=== PATIENT | male | born 1990 | race Caucasian/White ===

== ENCOUNTER 2019-10-30 10:12 | Day surgery (SDC) | payer OTHER ==
[~2019-10-30 10:12] MED LIST: CEFAZOLIN SODIUM IN 0.9 % NACL 2 GM/100 ML BAG IV ONE
[2019-10-30] MEDS ORDERED: BUPIVACAINE 0.25% PF 30 ML VIAL ONE (10:43)
[2019-10-30] MEDS ORDERED: EPINEPHrine 1 MG/ML AMP ONE (10:43)
--- NOTE | 2019-10-30 10:47 | ANESTHESIA ---
Pre-Anesthesia VS, & Labs - Diagnosis right knee meniscus tear - Procedure right knee meniscus repair Vital Signs: Temp Pulse Resp BP Pulse Ox 36.4 C L 74 18 123/90 H 97 10/30/19 10:15 10/30/19 10:15 10/30/19 10:15 10/30/19 10:15 10/30/19 10:15 Height 5 ft 10 in Weight (kg) 79.38 kg - NPO >8 hours Home Medications and Allergies Home Medications: Ambulatory Orders No Known Home Medications 10/26/19 No Known Home Medications 10/26/19 Allergies/Adverse Reactions: Allergies Allergy/AdvReac Type Severity Reaction Status Date / Time No Known Drug Allergies Allergy Verified 10/26/19 09:45 Anes History & Medical History - Anesthetic History Anesthesia Complications: reports: No previous complications Family history of Anesthesia Complications: Denies Family history of Malignant Hyperthermia: Denies - Medical History Cardiovascular: reports: None Pulmonary: reports: None, Other (vapes everyday) Gastrointestinal: reports: None Urinary: reports: None Neuro: reports: None Musculoskeletal: reports: None, Other Endocrine/Autoimmune: reports: None Blood Disorders: reports: None Skin: reports: None Smoking Status: Current every day smoker (vapes everyday) Psychosocial: reports: No issues indicated Exam General: Alert, Oriented x3, Cooperative, No acute distress Dental: WNL Mouth Openin Fingerbreadth Neck Mobility: Normal Mallampati classification: II Thyromental Distance: 4-6 cm Respiratory: Lungs clear, Normal breath sounds, No respiratory distress, No accessory muscle use Cardiovascular: Regular rate, Normal S1, Normal S2, No murmurs Abdomen: Normal bowel sounds, Soft, No tenderness, No hepatospenomegaly, No masses Extremities: No clubbing, No cyanosis, No edema, Normal pulses, No tenderness/swelling Neurological: Normal gait, Normal speech, Strength at 5/5 X4 ext, Normal tone, Sensation intact, Cranial nerves 3-12 NL, Reflexes 2+ Mental/Cognitive Status: Alert/Oriented X3, Normal for patient Cognitive Status: Within normal limits Plan Anesthesia Type: General Consent for Procedure(s) Verified and Reviewed: Yes Code Status: Attempt Resuscitation ASA classification: 2-Mild systemic disease Is this case an emergency?: No
[2019-10-30] MEDS ORDERED: LACTATED RINGERS 1,000 ML IV ONE (10:50)
[2019-10-30] MEDS ORDERED: ACETAMINOPHEN 1,000 MG/100 ML 100 ML IV ONE ×2 (10:58→11:06)
[2019-10-30] MEDS ORDERED: PROPOFOL 200 MG/20 ML VIAL IVP ONE (11:06)
[2019-10-30] MEDS ORDERED: DEXAMETHASONE 4 MG/ML VIAL IVP ONE (11:06)
[2019-10-30] MEDS ORDERED: LIDOCAINE-MPF 2% 5 ML VIAL IM ONE (11:06)
[2019-10-30] MEDS ORDERED: GLYCOPYRROLATE 1 MG/5 ML VIAL IVP ONE (11:06)
[2019-10-30] MEDS ORDERED: fentaNYL 100 MCG/2 ML VIAL IVP ONE (11:06)
[2019-10-30] MEDS ORDERED: ONDANSETRON 4 MG/2 ML VIAL IVP ONE (11:06)
[2019-10-30] MEDS ORDERED: KETOROLAC 30 MG/ML VIAL IVP ONE (11:06)
[2019-10-30] MEDS ORDERED: BUPIVACAINE 0.25% PF 30 ML VIAL SUBQ ONE (12:28)
[2019-10-30] MEDS ORDERED: ONDANSETRON 4 MG/2 ML VIAL IVP PRN (12:36)
[2019-10-30] MEDS ORDERED: oxyCODONE 5 MG TABLET PO PRN (12:36)
--- NOTE | 2019-10-30 12:44 | OPERATIVE REPORT ---
Operative Report - Other Other Information/Narrative: Date of Surgery: 30 Oct 2019 Pre-Op Diagnosis: Right knee lateral meniscus tear. Possible posterior cruciate and lateral collateral ligament tears Procedure: Right knee exam under anesthesia. Right knee arthroscopic lateral meniscus debridement Postop Diagnosis: Right knee lateral meniscus tear, irrepairable. Ligaments stable Primary Surgeon: Bam Reyes Secondary Surgeon: None Complications: None Tourniquet Time: 54 minutes EBL: 5 cc Indication For Surgery: 29-year-old male who injured his right knee in 2017 when he fell down a ladder well. He delayed treatment secondary to operational requirements. His knee pain and mechanical symptoms increased a few months ago while snowboarding. He notes that since 2017 he has felt a painful pop every time he straightens his knee. MRI showed a complex tear of the lateral meniscus and possible partial injuries to the posterior cruciate and lateral collateral ligaments. The risks, benefits, and alternatives were discussed. Risks include pain, bleeding, infection, damage to nearby structures and cartilage, lack of symptom relief, need for further surgery, DVT, PE, stroke, and . Written consent was obtained. Examination Under Anesthesia: ROM equal to the contralateral side. Stable dial at 30 & 90 degrees. Stable to varus and valgus stressing at 0 & 30 degrees. The lateral collateral ligament was assessed very carefully in comparison to the contralateral side and found to be identical. Normal Yeny. Normal Pivot shift. Large mechanical sensation with a pop every time I extend or bend the knee Arthroscopic Findings: Loose bodies -none Synovium -normal Patella cartilage -normal Trochlear cartilage -normal Medial femoral condyle cartilage -normal Medial tibial plateau cartilage -normal Medial meniscus -normal Anterior cruciate ligament -normal Posterior cruciate ligament -normal to extensive probing and intraoperative stress test. [place] stable Lateral femoral condyle cartilage -normal Lateral tibial plateau cartilage -normal Lateral meniscus -large parrot-beak tear of the posterior horn that was displaced anterior to the lateral femoral condyle. Behind the parrot-beak tear there was a significant horizontal tear that led nearly back to the capsule. The parrot-beak tear could be reduced but it immediately returned to its anterior position. It was not repairable. All unstable portions were debrided. I made the decision to not take all of the meniscus associated with the horizontal tear because it would have left him with no remaining meniscus. Smooth borders were obtained. Procedure in Detail: The patient was met in the pre-operative hold area on the day of the procedure. The operative extremity was signed and questions were answered. The patient was brought to the operating room and a general anesthetic was administered. Supine position was used and bony prominences were padded. An examination under anesthesia was performed. Standard prepping and draping was performed. A time out confirmed patient identification, laterality, procedure, allergies, antibiotics, and images. An Esmarch was used to exsanguinate the limb and the tourniquet was elevated to 250 mmHg. A standard diagnostic arthroscopy of the knee was performed through anterolateral and anteromedial portal sites. The anteromedial portal was created under direct visualization after localizing with a spinal needle. The findings can be found above. The lateral forrest-joint was very tight and challenging to get into further confirming the fact that the lateral collateral ligament was intact. I then proceeded to use a variety of biters and a shaver to debride all unstable portions of the lateral meniscus. The horizontal tear extended nearly to the capsule and I decided to not remove all of the the body of the meniscus. I left a rim of tissue that was stable although the horizontal tear continued within it. Final images were taken and all arthroscopic fluid and instruments were removed from the knee. The incisions were closed with buried monocryl sutures. Steri strips were applied. 20 cc of 0.25% Marcaine without epinephrine was injected near the portal sites. A sterile dressing and compression stocking was placed. The patient was awakened and transferred to recovery in stable condition.
[2019-10-30 13:56] VITALS: BP 111/72
== END 2019-10-30 10:13 | disposition home or self-care (01) ==
LOC: SDS 10:12
PROVIDERS: ATTEND Orthopaedic Surgery
DX: S83.271A Complex tear of lateral meniscus, current injury, right knee, initial encounter (principal); F17.290 Nicotine dependence, other tobacco product, uncomplicated

== ENCOUNTER 2020-01-28 16:10 | Outpatient (CLI) | payer OTHER ==
--- NOTE | 2020-01-29 14:18 | MRI Report ---
PROCEDURE: Knee RT W/O INDICATIONS: CONTINUED LATERAL MECHANICAL SYMPTOMS TECHNIQUE: Noncontrast sagittal PD fast spin echo and T2 fast spin echo with fat saturation, sagittal 3-D gradie nt sequence with fat saturation; coronal T1 spin echo and PD fast spin echo with fat saturation, and axial PD fast spin echo with fat saturation through the knee. COMPARISON: None. FINDINGS: Image quality: Excellent. Menisci: Medial meniscus is within normal limits. Complex tear involving anterior horn, body and post erior horn of lateral meniscus is seen extending to both superior and inferior articulating surfaces. The meniscal root ligaments appear intact. Cruciate ligaments: The anterior and posterior cruciate ligaments appear intact. Medial structures: The medial collateral ligament appears intact. The posterior oblique ligament, s emimembranosus tendon insertions, and oblique popliteal ligament, and meniscocapsular junction appear intact. Visualized portions of the pes anserinus tendons appear normal. No abnormal bursal fluid. Lateral structures: The lateral collateral ligament, long and short heads of the biceps femoris tend on appear intact. The popliteus tendon appears normal; the popliteofibular ligament appears intact. The posterosuperior and anteroinferior popliteomeniscal fascicles appear intact. The arcuate and fa bellofibular ligaments appear intact, around the lateral inferior geniculate artery. Iliotibial band appears normal. Anterior structures: The quadriceps and patellar tendons appear intact. Patellar alignment is evelin l. No femoral trochlear dysplasia or ventral trochlear prominence. No edema in the infrapatellar fa t pad. Bones and cartilage: No bone marrow contusions or fractures. The cartilage of the medial and latera l femorotibial compartments, as well as the patellofemoral compartment, appears normal in thickness. Joint space: There is small amount of knee joint fluid. No Gutierrez?s cyst. Normal appearing synovial plicae are incidentally noted. IMPRESSION: 1. Complex tear involving the entire lateral meniscus extending to both superior and inferior articul ating surfaces. No evidence of focal medial meniscal tear. 2. Cruciate ligaments are intact. 3. No marrow edema. No fracture or dislocation. Small joint effusion. Reviewed by: Abel Peraza MD on 01/29/2020 2:17 PM PDT Approved by: Abel Peraza MD on 01/29/2020 2:17 PM PDT Station ID: [id number]
== END 2020-01-28 16:11 | disposition home or self-care (01) ==
LOC: DI 16:10
PROVIDERS: ATTEND Orthopaedic Surgery
DX: S83.271A Complex tear of lateral meniscus, current injury, right knee, initial encounter (principal)

== ENCOUNTER 2020-03-01 07:14 | Day surgery (SDC) | payer OTHER ==
[2020-03-01] MEDS ORDERED: BUPIVACAINE 0.25% PF 30 ML VIAL SUBQ ONE (07:31)
[2020-03-01] MEDS ORDERED: EPINEPHrine 1 MG/ML AMP IJ ONE (07:32)
[2020-03-01] MEDS ORDERED: EPINEPHrine 1 MG/ML AMP IR ONE (07:32)
[2020-03-01] MEDS ORDERED: EPINEPHrine 1 MG/ML AMP ONE (07:43)
[2020-03-01] MEDS ORDERED: BUPIVACAINE 0.25% PF 30 ML VIAL ONE (07:43)
[2020-03-01] MEDS ORDERED: LACTATED RINGERS 1,000 ML IV ONE ×2 (07:50→10:26)
[2020-03-01] MEDS ORDERED: METOCLOPRAMIDE 10 MG/2 ML VIAL IVP PRN ×2 (07:51→10:46)
[2020-03-01] MEDS ORDERED: HYDROmorphone 0.5 MG/0.5 ML SYRINGE IVP PRN ×2 (07:51→10:46)
[2020-03-01] MEDS ORDERED: ePHEDrine 50 MG/ML VIAL IVP PRN ×2 (07:51→10:46)
[2020-03-01] MEDS ORDERED: ONDANSETRON 4 MG/2 ML VIAL IVP PRN ×3 (07:51→10:46)
[2020-03-01] MEDS ORDERED: fentaNYL 100 MCG/2 ML VIAL IVP PRN ×2 (07:51→10:46)
[2020-03-01] MEDS ORDERED: ATROPINE ABBOJECT 1 MG/10 ML SYRINGE IVP PRN ×2 (07:51→10:46)
[2020-03-01] MEDS ORDERED: diphenhydrAMINE INJ 50 MG/ML VIAL IVP PRN (07:51)
[2020-03-01] MEDS ORDERED: ACETAMINOPHEN 1,000 MG/100 ML 100 ML IV ONE ×2 (07:51→10:48)
[2020-03-01] MEDS ORDERED: NALOXONE 0.4 MG/ML VIAL IVP PRN ×2 (07:51→10:46)
[2020-03-01] MEDS ORDERED: LACTATED RINGERS 1,000 ML IV SCH ×2 (08:00→11:00)
[2020-03-01] MEDS ORDERED: fentaNYL 100 MCG/2 ML VIAL IVP ONE (08:47)
[2020-03-01] MEDS ORDERED: PROPOFOL 200 MG/20 ML VIAL IVP ONE (08:47)
[2020-03-01] MEDS ORDERED: DEXAMETHASONE 4 MG/ML VIAL IVP ONE (08:47)
[2020-03-01] MEDS ORDERED: ONDANSETRON 4 MG/2 ML VIAL IVP ONE (08:47)
[2020-03-01] MEDS ORDERED: MIDAZOLAM 2 MG/2 ML VIAL IVP ONE (08:47)
[2020-03-01] MEDS ORDERED: oxyCODONE 5 MG TABLET PO PRN (10:20)
--- NOTE | 2020-03-01 10:30 | IMMEDIATE POSTOPERATIVE NOTE ---
Immediate Postoperative Note - Procedure Note Procedure Date: 03/01/20 Pre-Op Diagnosis: right knee meniscus tear Procedure: right knee scope meniscus debridement Post-Op Diagnosis: same Primary Surgeon: Eric Adult Education Teacher: Josephine Anesthesia Type: General LMA Findings: Torn meniscus that was unstable Complications: No complications Estimated Blood Loss (in cc): 5 Plan of Care: same day discharge when criteria met
--- NOTE | 2020-03-01 10:42 | ANESTHESIA ---
Pre-Anesthesia VS, & Labs - Diagnosis Right Hand mass - Procedure right hand mass excision Vital Signs: Temp Pulse Resp BP Pulse Ox 36.2 C L 62 10 L 101/68 95 03/01/20 10:37 03/01/20 10:37 03/01/20 10:37 03/01/20 10:37 03/01/20 10:37 Height: 5 ft 10 in Weight (kg): 79.38 kg Body Mass Index: 25.1 BMI Classification: Overweight - NPO >8 hours Home Medications and Allergies Active Medications Atropine Sulfate () 0.5 mg IVP Q5M PRN PRN Reason: Bradycardia Stop: 03/02/20 07:51 Diphenhydramine HCl (Benadryl Inj) 25 mg IVP Q15M PRN PRN Reason: ITCHING Stop: 03/02/20 07:51 Ephedrine Sulfate () 10 mg IVP Q5M PRN PRN Reason: HYPOTENSION Stop: 03/02/20 07:51 Fentanyl (Fentanyl) 25 - 50 mcg IVP Q5M PRN PRN Reason: BREAKTHROUGH PAIN (2nd Choice) Stop: 03/02/20 07:51 Hydromorphone HCl (Dilaudid Inj Syringe) 0.2 - 0.6 mg IVP Q5M PRN PRN Reason: PAIN (First Choice) Stop: 03/02/20 07:51 Acetaminophen (Ofirmev) 100 mls @ 400 mls/hr IV ONCE ONE Stop: 03/02/20 08:05 Lactated Ringer's (Lr) 1,000 mls @ 100 mls/hr IV .Q10H JULIA Stop: 03/01/20 17:59 Metoclopramide HCl (Reglan Inj) 10 mg IVP Q6HR PRN PRN Reason: N/V not relieved by Zofran Naloxone HCl (Narcan) 0.1 mg IVP Q2M PRN PRN Reason: RESP RATE <8 Stop: 03/02/20 07:51 Ondansetron HCl (Zofran Inj) 4 mg IVP Q6HR PRN PRN Reason: Nausea / Vomiting Oxycodone HCl (Roxicodone) 5 mg PO Q4HR PRN PRN Reason: PAIN No Known Home Medications 10/26/19 Allergies/Adverse Reactions: Allergies Allergy/AdvReac Type Severity Reaction Status Date / Time No Known Drug Allergies Allergy Verified 02/25/20 10:02 Anes History & Medical History - Anesthetic History Anesthesia Complications: reports: No previous complications Family history of Anesthesia Complications: Denies Family history of Malignant Hyperthermia: Denies - Medical History Cardiovascular: reports: None Pulmonary: reports: None Gastrointestinal: reports: None Urinary: reports: None Neuro: reports: None Musculoskeletal: reports: Other Endocrine/Autoimmune: reports: None Blood Disorders: reports: None Skin: reports: None Smoking Status: Current every day smoker (vapes everyday) - Surgical History Orthopedic: Arthroscopic surgery Exam General: Alert Dental: WNL Mouth Openin Fingerbreadth Neck Mobility: Normal Mallampati classification: II Thyromental Distance: 4-6 cm Respiratory: Lungs clear, Normal breath sounds, No respiratory distress, No accessory muscle use Cardiovascular: Regular rate, Normal S1, Normal S2, No murmurs Plan Anesthesia Type: General Consent for Procedure(s) Verified and Reviewed: Yes Code Status: Attempt Resuscitation ASA classification: 1-Healthy patient Is this case an emergency?: No
[2020-03-01] MEDS ORDERED: MORPHINE 2 MG/ML CARPUJECT IVP PRN (10:46)
[2020-03-01] MEDS ORDERED: HYDROmorphone 0.5 MG/0.5 ML SYRINGE ONE (10:48)
--- NOTE | 2020-03-01 10:48 | ANESTHESIA POST OP EVALUATION ---
Anesthesia Post Eval - Post Anesthesia Eval Vitals: Last Vital Signs Temp 36.2 C L 03/01/20 10:37 Pulse 62 03/01/20 10:37 Resp 10 L 03/01/20 10:37 BP 101/68 03/01/20 10:37 Pulse Ox 95 03/01/20 10:37 CV Function Including HR & BP: positive: Stable Pain Control: positive: Satisfactory Nausea & Vomiting: positive: Negative Mental Status: positive: Baseline Respiratory Status: Airway Patent Hydration Status: Satisfactory
[2020-03-01] MEDS ORDERED: oxyCODONE 5 MG TABLET ONE (11:17)
[2020-03-01 11:37] VITALS: BP 103/67
--- NOTE | 2020-03-01 14:55 | OPERATIVE REPORT ---
Operative Report - Other Other Information/Narrative: Date of Surgery: 01 March 2020 Pre-Op Diagnosis: Right knee lateral meniscus tear. Right knee discoid meniscus Procedure: Right knee arthroscopy with lateral meniscus debridement and meniscus saucerization Postop Diagnosis: Same Primary Surgeon: Bam Reyes Secondary Surgeon: Rey Burton Complications: None Tourniquet Time: 52 minutes EBL: 20 cc Indication For Surgery: 29-year-old male whom had a complex lateral meniscus tear sometime ago and underwent arthroscopic management with meniscus debridement. I left as much meniscus as I possibly could with the hopes that he would be able to maintain some meniscal tissue to prevent arthritis. In the postoperative period he had some improvement in his mechanical symptoms but they continued to be painful and activity limiting. The assessment was that his lateral meniscus continued to be symptomatic and further excision would be necessary. I discussed the risks of the surgery. I discussed that I will visualized the popping arthroscopically prior to moving forward with the plan. The risks, benefits, and alternatives were discussed. Risks include pain, bleeding, infection, damage to nearby structures and cartilage, lack of symptom relief, need for further surgery, DVT, PE, stroke, and . Written consent was obtained. Examination Under Anesthesia: ROM equal to the contralateral side. Stable dial at 30 & 90 degrees. Stable to varus and valgus stressing at 0 & 30 degrees. Normal Yeny. Normal Pivot shift. There was a large mechanical sensation when going from full extension into slight flexion on the lateral side Arthroscopic Findings: Loose bodies -none Synovium -hyperemic and injected on the lateral side adjacent to the meniscus tear Patella cartilage -normal Trochlear cartilage -normal Medial femoral condyle cartilage -normal Medial tibial plateau cartilage -normal Medial meniscus -normal Anterior cruciate ligament -normal Posterior cruciate ligament -normal Lateral femoral condyle cartilage -very light scuffing noticed at the end of the case but otherwise normal Lateral tibial plateau cartilage -normal Lateral meniscus -complex tear of a discoid meniscus involving the body, posterior horn, and anterior horn. While I kept the scope looking in the gutter I brought the knee down from full extension into slight flexion and the entire meniscus protruded from the front of the joint. When I then fully extended the entire anterior horn and the majority of the body of meniscus and got sucked into the joint space itself. At the junction of the anterior horn of the body the meniscus was very degenerative and had a radial tear going back to the ca psule. There was also a significant horizontal tear starting the posterior horn and coming all the way around to the anterior insertion. All unstable portions of the meniscus were removed until there was no clunking and no catching of the meniscus in the joint. This left nearly no meniscus in the body as it was unstable and unhealthy. Procedure in Detail: The patient was met in the pre-operative hold area on the day of the procedure. The operative extremity was signed and questions were answered. The patient was brought to the operating room and a general anesthetic was administered. Supine position was used and bony prominences were padded. An examination under anesthesia was performed. Standard prepping and draping was performed. A time out confirmed patient identification, laterality, procedure, allergies, antibiotics, and images. An Esmarch was used to exsanguinate the limb and the tourniquet was elevated to 250 mmHg. A standard diagnostic arthroscopy of the knee was performed through anterolateral and anteromedial portal sites. The anteromedial portal was created under direct visualization after localizing with a spinal needle. The findings can be found above. I then proceeded to use a shaver and biters to debride all unstable portions of the meniscus. I then assessed if the meniscus continue to get caught within the joint and found that it did so I returned and continued to take additional meniscus tissue that appeared unhealthy and unstable until all unhealthy and unstable meniscus tissue had been removed and there was no mechanical catching on range of motion. Final images were taken and all arthroscopic fluid and instruments were removed from the knee. The incisions were closed with buried monocryl sutures. Steri strips were applied. 20 cc of 0.25% Marcaine without epinephrine was injected near the portal sites. A sterile dressing and compression stocking was placed. The patient was awakened and transferred to recovery in stable condition.
--- NOTE | 2020-03-09 14:51 | ANESTHESIA ---
Pre-Anesthesia VS, & Labs - Diagnosis Knee Pain - Procedure Meniscus repair, arthroscopic Vital Signs: Temp Pulse Resp BP Pulse Ox 36.6 C 68 18 103/67 99 03/01/20 11:30 03/01/20 11:30 03/01/20 11:30 03/01/20 11:30 03/01/20 11:30 Height: 5 ft 10 in Weight (kg): 79.38 kg Body Mass Index: 25.1 BMI Classification: Overweight - NPO >8 hours Home Medications and Allergies No Known Home Medications 10/26/19 Allergies/Adverse Reactions: Allergies Allergy/AdvReac Type Severity Reaction Status Date / Time No Known Drug Allergies Allergy Verified 02/25/20 10:02 Anes History & Medical History - Anesthetic History Anesthesia Complications: reports: No previous complications Family history of Anesthesia Complications: Denies Family history of Malignant Hyperthermia: Denies - Medical History Cardiovascular: reports: None Pulmonary: reports: None Gastrointestinal: reports: None Urinary: reports: None Neuro: reports: None Musculoskeletal: reports: Other Endocrine/Autoimmune: reports: None Blood Disorders: reports: None Skin: reports: None Smoking Status: Current every day smoker (vapes everyday) - Surgical History Orthopedic: Arthroscopic surgery Exam General: Alert Dental: WNL Mouth Opening: Greater than 4 Fingerbreadths Neck Mobility: Normal Mallampati classification: II Thyromental Distance: greater than 6 cm Respiratory: Lungs clear, Normal breath sounds, No respiratory distress, No accessory muscle use Cardiovascular: Regular rate, Normal S1, Normal S2, No murmurs Mental/Cognitive Status: Alert/Oriented X3, Normal for patient Plan Anesthesia Type: General Consent for Procedure(s) Verified and Reviewed: Yes Code Status: Attempt Resuscitation ASA classification: 1-Healthy patient Is this case an emergency?: No
== END 2020-03-01 07:15 | disposition home or self-care (01) ==
LOC: SDS 07:14
PROVIDERS: ATTEND Orthopaedic Surgery
DX: S83.281A Other tear of lateral meniscus, current injury, right knee, initial encounter (principal)